=== PATIENT | male | born 2000 | race Caucasian/White ===

== ENCOUNTER 2019-04-07 21:38 | Emergency (ER) | payer SELFPAY ==
[~2019-04-07] VITALS: Ht 180.3 cm; Wt 138.3 kg
[2019-04-07 21:50] VITALS: BP 165/95
--- NOTE | 2019-04-07 21:56 | PHYS DOC ---
Adult General Chief Complaint Chief Complaint: ANKLE PROBLEM HPI HPI 18-year-old male presents with right ankle pain. The patient states he fell down a couple stairs yesterday and the end of the fall rolled his right ankle medially. He has been able to walk. He has some pain with toe off, but it does seem to be improving. He presents because he needs a work note and he doesn't think he should go back to work yet because it still hurts. He really doesn't think it's broken and doesn't want an x-ray of a sepsis necessary. He has no other concerns or complaints. Review of Systems Review of Systems Constitutional: Denies fever or chills [] Eyes: Denies change in visual acuity, redness, or eye pain [] HENT: Denies nasal congestion or sore throat [] Respiratory: Denies cough or shortness of breath [] Cardiovascular: No additional information not addressed in HPI [] GI: Denies abdominal pain, nausea, vomiting, bloody stools or diarrhea [] : Denies dysuria or hematuria [] Musculoskeletal: Right ankle pain[] Integument: Denies rash or skin lesions [] Neurologic: Denies headache, focal weakness or sensory changes [] Endocrine: Denies polyuria or polydipsia [] All other systems were reviewed and found to be within normal limits, except as documented in this note. Allergies Allergies Allergies Coded Allergies Type Severity Reaction Last Updated Verified No Known Drug Allergies 04/07/19 No Physical Exam Physical Exam Constitutional: Well developed, well nourished, no acute distress, non-toxic appearance. [] HENT: Normocephalic, atraumatic, bilateral external ears normal, oropharynx moist, no oral exudates, nose normal. [] Eyes: PERRLA, EOMI, conjunctiva normal, no discharge. [] Neck: Normal range of motion, no tenderness, supple, no stridor. [] Cardiovascular:Heart rate regular rhythm, no murmur [] Lungs & Thorax: Bilateral breath sounds clear to auscultation [] Abdomen: Bowel sounds normal, soft, no tenderness, no masses, no pulsatile nilay s. [] Skin: Warm, dry, no erythema, no rash. [] Back: No tenderness, no CVA tenderness. [] Extremities: Mild tenderness over the right lateral ankle below the malleolus, no cyanosis, no clubbing, ROM intact, no edema. [] Neurologic: Alert and oriented X 3, normal motor function, normal sensory f unction, no focal deficits noted. [] Psychologic: Affect normal, judgement normal, mood normal. [] EKG EKG [] Radiology/Procedures Radiology/Procedures [] Course & Med Decision Making Course & Med Decision Making Pertinent Labs and Imaging studies reviewed. (See chart for details) I believe the patient has mild right ankle sprain. He wears high top lace up boots for work. Given the option of a splint and he does not believe is necessary. He is stable for discharge at this time. [] Dragon Disclaimer Dragon Disclaimer This electronic medical record was generated, in whole or in part, using a voice recognition dictation system. Departure Departure: Impression: Primary Impression: Right ankle sprain Referrals: PCP,NO (PCP) Patient Instructions: Ankle Sprain, Acute, with Phase I Rehab-Sports[facility] Problem Qualifiers Primary Impression: Right ankle sprain Encounter type: initial encounter Involved ligament of ankle: unspecified ligament Qualified Codes: S93.401A - Sprain of unspecified ligament of right ankle, initial encounter VALERIA THOMAS DO April 07, 2019 21:56
== END 2019-04-07 22:00 | disposition home or self-care (01) ==
LOC: ER 21:38
DX: S93.401A Sprain of unspecified ligament of right ankle, initial encounter (principal); W10.8XXA Fall (on) (from) other stairs and steps, initial encounter; Y93.89 Activity, other specified; Y92.89 Other specified places as the place of occurrence of the external cause; Y99.8 Other external cause status
CPT/HCPCS: 99281

== ENCOUNTER 2019-05-17 18:46 | Emergency (ER) | payer OTHER ==
[~2019-05-17] VITALS: Ht 172.7 cm; Wt 110.7 kg
--- NOTE | 2019-05-17 18:50 | ED.ADGEN ---
Past History Past Medical History: No Pertinent History Past Surgical History: No Surgical History Drug Use: None Adult General Chief Complaint Chief Complaint ".. I was cutting up tang.. and I got my Lt index finger.. almost completely cut off the tip..." " I work and [employer]. .my boss sent me down here..." HPI HPI Patient is a 18 year old male who presents with above hx and complaints of 2 cm laceration Lt. finger (Tip avulsion.) Pt. working at [employer] at time of i njury. Patient denies any other injuries. Patient denies immunosuppression. Patient does not remember his last tetanus shot. Patient is right-hand dominant. No travel or specific ill contacts. Review of Systems Review of Systems Constitutional: Denies fever or chills [] Eyes: Denies change in visual acuity, redness, or eye pain [] HENT: Denies nasal congestion or sore throat [] Respiratory: Denies cough or shortness of breath [] Cardiovascular: No additional information not addressed in HPI [] GI: Denies abdominal pain, nausea, vomiting, bloody stools or diarrhea [] : Denies dysuria or hematuria [] Musculoskeletal: Denies back pain or joint pain [] Integument: Denies rash or skin lesions []complaints of near avulsion laceration of right distal index finger Neurologic: Denies headache, focal weakness or sensory changes [] Endocrine: Denies polyuria or polydipsia [] All other systems were reviewed and found to be within normal limits, except as documented in this note. Family History Family History Noncontributory Current Medications Current Medications Current Medications Medications (Trade) Dose Ordered Sig/James Start Time Stop Time Status Last Admin Dose Admin Bacitracin (Bacitracin Topical Pkt) 2 pkt 1X ONCE 05/17/19 19:15 05/17/19 19:17 DC 05/17/19 19:42 2 PKT Diphtheria/ Tetanus/Acell Pertussis (Boostrix) 0.5 ml ONCE ONCE 05/17/19 19:15 05/17/19 19:17 DC 05/17/19 19:42 0.5 ML Lidocaine HCl 20 ml 1X ONCE 05/17/19 19:15 05/17/19 19:17 DC 05/17/19 19:43 20 ML Allergies Allergies Allergies Coded Allergies Type Severity Reaction Last Updated Verified No Known Drug Allergies 04/07/19 No Physical Exam Physical Exam Constitutional: Well developed, well nourished, no acute distress, non-toxic appearance. [] HENT: Normocephalic, atraumatic, bilateral external ears normal, oropharynx moist, no oral exudates, nose normal. [] Eyes: PERRLA, EOMI, conjunctiva normal, no discharge. [] Neck: Normal range of motion, no tenderness, supple, no stridor. [] Cardiovascular:Heart rate regular rhythm, no murmur [] Lungs & Thorax: Bilateral breath sounds clear to auscultation [] Abdomen: Bowel sounds normal, soft, no tenderness, no masses, no pulsatile masses. [] Skin: Warm, dry, no erythema, no rash. [] Back: No tenderness, no CVA tenderness. [] Extremities: No tenderness, no cyanosis, no clubbing, ROM intact, no edema. [] Laceration tip of left index finger as per history of present illness Neurologic: Alert and oriented X 3, normal motor function, normal sensory function, no focal deficits noted. [] Psychologic: Affect normal, judgement normal, mood normal. [] Current Patient Data Vital Signs Vital Signs Date Time Temp Pulse Resp B/P (MAP) Pulse Ox O2 Delivery O2 Flow Rate FiO2 05/17/19 19:05 98.4 82 16 97 Room Air EKG EKG [] Radiology/Procedures Radiology/Procedures [] Course & Med Decision Making Course & Med Decision Making Pertinent Labs and Imaging studies reviewed. (See chart for details) Laceration repair- Finger laceration irrigated extensive with saline in range of motion. Betadine applied to edge is of wound. Finger re-irrigated with normal saline. Digital block as well as localization blocking with lidocaine. Re-irrigated finger. Placed 6x 4-0 Prolene stitches. Dressing applied with antibiotic ointment. Patient keep finger clean and dry. Sutures to be taken out in 10 days. If finger becomes wet or soiled or dirty dressing must be removed immediately and replaced with Band-Aid and antibiotic ointment 4 times a day. Follow-up primary care. Follow-up work comp. Return if any concerns. Tylenol and ibuprofen for pain. [] Final Impression Final Impression 1. 2 cm avulsion laceration Lt. index finger[] Dragon Disclaimer Dragon Disclaimer This electronic medical record was generated, in whole or in part, using a voice recognition dictation system. Discharge Summary Visit Information Final Diagnosis Problems Medical Problems: (1) Laceration Status: Acute Brief Hospital Course Allergies Allergies Coded Allergies Type Severity Reaction Last Updated Verified No Known Drug Allergies 04/07/19 No Vital Signs Vital Signs Date Time Temp Pulse Resp B/P (MAP) Pulse Ox O2 Delivery O2 Flow Rate FiO2 05/17/19 19:05 98.4 82 16 97 Room Air Brief Hospital Course Mr. Carey is a 18 old male who presented with distal near completed avulsion laceration to tip of Lt.index finger. Discharge Information Condition at Discharge: Improved Disposition/Orders: D/C to Home Dischare Medications Current Medications Lidocaine HCl 20 ml 1X ONCE INJ Last administered on 05/17/19at 19:43; Admin Dose 20 ML; Start 05/17/19 at 19:15; Stop 05/17/19 at 19:17; Status DC Bacitracin (Bacitracin Topical Pkt) 2 pkt 1X ONCE TP Last administered on 05/17/19at 19:42; Admin Dose 2 PKT; Start 05/17/19 at 19:15; Stop 05/17/19 at 19:17; Status DC Diphtheria/ Tetanus/Acell Pertussis (Boostrix) 0.5 ml ONCE ONCE VAX IM Last administered on 05/17/19at 19:42; Admin Dose 0.5 ML; Start 05/17/19 at 19:15; Stop 05/17/19 at 19:17; Status DC Dragon Disclaimer This chart was dictated in whole or in part using Voice Recognition software in a busy, high-work load, and often noisy Emergency Department environment. It may contain unintended and wholly unrecognized errors or omissions. BECCA PERRY MD May 17, 2019 18:50
[2019-05-17 19:05] VITALS: BP 154/58
[2019-05-17] MEDS ORDERED: BACITRACIN ZINC TOPICAL OINT PACKET. TP ONE (19:15)
[2019-05-17] MEDS ORDERED: DIPHTH,PERTUSS(ACELL),TET TOX 0.5 ML DISP.SYRIN. VAX IM ONE (19:15)
[2019-05-17] MEDS ORDERED: LIDOCAINE 2% 20 ML VIAL. INJ ONE (19:15)
== END 2019-05-17 19:34 | disposition home or self-care (01) ==
LOC: ER 18:46
DX: S61.311A Laceration without foreign body of left index finger with damage to nail, initial encounter (principal); W26.8XXA Contact with other sharp object(s), not elsewhere classified, initial encounter; Y93.89 Activity, other specified; Y92.89 Other specified places as the place of occurrence of the external cause; Y99.0 Civilian activity done for income or pay
CPT/HCPCS: 12001; 90471; 90715; 99283-25; J2001

== ENCOUNTER 2019-05-28 14:35 | Emergency (ER) | payer OTHER ==
[~2019-05-28] VITALS: Ht 172.7 cm; Wt 105.8 kg
[2019-05-28 14:35] VITALS: BP 151/89
[2019-05-28] MEDS ORDERED: IPRATRPIUM/ALBUTEROL 0.5/2.5MG 3 ML NEBU. NEB ONE (15:00)
--- NOTE | 2019-05-28 15:12 | PHYS DOC ---
Past History Past Medical History: Asthma Past Surgical History: No Surgical History Alcohol Use: None Drug Use: None Adult General Chief Complaint Chief Complaint: FINGER INJURY HPI HPI Patient is a 18-year-old male who presents with complaint that he is not feeling well over the last couple of days and states that last night he had difficulty with sleeping because he was coughing and feeling short of breath. He denies any fever. He states the cough is been present for the last few days and has been productive of sputum. He denies any chest pain. He states that shortness breath is worsened with exertion. He states that nothing is improving his symptoms.[] Review of Systems Review of Systems Constitutional: Denies fever or chills [] Respiratory: Positive productive cough and shortness of breath [] Cardiovascular: No additional information not addressed in HPI [] Integument: Denies rash or skin lesions [] Current Medications Current Medications Current Medications Medications (Trade) Dose Ordered Sig/James Start Time Stop Time Status Last Admin Dose Admin Albuterol/ Ipratropium (Duoneb) 3 ml 1X ONCE 05/28/19 15:00 05/28/19 15:01 UNV Allergies Allergies Allergies Coded Allergies Type Severity Reaction Last Updated Verified No Known Drug Allergies 04/07/19 No Physical Exam Physical Exam Constitutional: Well developed, well nourished, no acute distress, non-toxic appearance. [] Neck: Normal range of motion, no tenderness, supple, no stridor. [] Cardiovascular:Heart rate regular rhythm, no murmur [] Lungs & Thorax: Bilateral breath sounds clear to auscultation [] Extremities: No tenderness, no cyanosis, no clubbing, ROM intact, no edema. [] EKG EKG [] Radiology/Procedures Radiology/Procedures [] Impressions: chest x-ray demonstrates no acute abnormality. Course & Med Decision Making Course & Med Decision Making Pertinent Labs and Imaging studies reviewed. (See chart for details) [] Dragon Disclaimer Dragon Disclaimer This electronic medical record was generated, in whole or in part, using a voice recognition dictation system. Departure Departure: Impression: Primary Impression: Acute bronchitis Disposition: HOME, SELF-CARE Condition: STABLE Referrals: PCP,NO (PCP) Patient Instructions: Acute Bronchitis Scripts Azithromycin (ZITHROMAX) 250 Mg Tablet 1 PKG PO UD for infection, #6 TAB Prov: KATE MCKENZIE Jr. DO 05/28/19 Problem Qualifiers Primary Impression: Acute bronchitis Bronchitis organism: unspecified organism Qualified Codes: J20.9 - Acute bronchitis, unspecified KATE MCKENZIE Jr. DO May 28, 2019 15:12
[2019-05-28 15:25] LABS: BILIRUBIN,URINE NEG (NEG); CLARITY,URINE CLEAR; COLOR,URINE ORANGE; GLUCOSE,URINE NEG (NEG)
[2019-05-28 15:26] LABS: BACTERIA,URINE FEW /HPF (0-FEW); HYALINE CASTS, URINE OCC /HPF; NITRITE,URINE NEG (NEG); RBC,URINE 0 /HPF (0-2); SQUAMOUS EPITHELIAL CELL,UR OCC /LPF; UROBILINOGEN,URINE 8 mg/dL (0.2 mg/dL); WBC,URINE 0 /HPF (0-4)
--- NOTE | 2019-05-28 15:29 | RAD ---
Chest, PA and Lateral: Technique: PA and lateral views of the chest were obtained. History: Cough. Comparison: None. Findings: The heart and pulmonary vasculature appear within normal limits. The lungs are clear. The pleural margins are clear. Impression: No acute chest process is seen. Electronically signed by: Dinesh Jennings MD (05/28/2019 3:26 PM) [place]
[2019-05-28] MEDS ORDERED: AZIT250T PO (15:52)
[2019-05-28] MEDS ORDERED: AZITHROMYCIN 250 MG TABLET. PO ONE (16:00)
== END 2019-05-28 16:08 | disposition home or self-care (01) ==
LOC: ER 14:35
DX: J20.9 Acute bronchitis, unspecified (principal); J45.909 Unspecified asthma, uncomplicated
CPT/HCPCS: 71046; 81001; 94640; 99285; J0456; J7620

== ENCOUNTER 2020-04-15 18:40 | Emergency (ER) | payer SELFPAY ==
[~2020-04-15] VITALS: Ht 180.3 cm; Wt 96.1 kg
[~2020-04-15 18:40] MED LIST: AZIT250T PO
[2020-04-15 20:11] VITALS: BP 138/81
--- NOTE | 2020-04-15 20:15 | PHYS DOC ---
Past History Past Medical History: Seizure Past Surgical History: No Surgical History Alcohol Use: None Drug Use: None General Adult EDM: Chief Complaint: BACK INJURY HPI: HPI: "..I got this terrible low back..or upper butt pain.. it is so bad now .. I can't sit..." Patient is a 19 year old male who presents with above hx and complaints of low back pain or tail bone pain for 2 weeks. Upon exam patient patient has a abscess at the upper gluteal crease. Patient denies any history of metal suppression. Patient denies any history of colitis with him or family members. Patient states his tetanus is up-to-date. No recent travel or sick ill contacts. Discussed options of treatment with patient. Review of Systems: Review of Systems: Constitutional: Denies fever or chills Eyes: Denies change in visual acuity HENT: Denies nasal congestion or sore throat Respiratory: Denies cough or shortness of breath Cardiovascular: Denies chest pain or edema GI: Denies abdominal pain, nausea, vomiting, bloody stools or diarrhea : Denies dysuria Musculoskeletal: Complains of lower back/gluteal crease pain Integument: Denies rash Neurologic: Denies headache, focal weakness or sensory changes Endocrine: Denies polyuria or polydipsia Lymphatic: Denies swollen glands Psychiatric: Denies depression or anxiety Heart Score: Risk Factors: Risk Factors: DM, Current or recent (<one month) smoker, HTN, HLP, family history of CAD, obesity. Risk Scores: Score 0 - 3: 2.5% MACE over next 6 weeks - Discharge Home Score 4 - 6: 20.3% MACE over next 6 weeks - Admit for Clinical Observation Score 7 - 10: 72.7% MACE over next 6 weeks - Early Invasive Strategies Family History: Family History: Noncontributory Current Medications: Current Meds: See nursing for home meds Allergies: Allergies: Allergies Coded Allergies Type Severity Reaction Last Updated Verified No Known Drug Allergies 04/07/19 No Physical Exam: PE: Constitutional: Well developed, well nourished,in acute distress, non-toxic appearance. [] HENT: Normocephalic, atraumatic, bilateral external ears normal, oropharynx moist, no oral exudates, nose normal. [] Eyes: PERRLA, EOMI, conjunctiva normal, no discharge. [] Neck: Normal range of motion, no tenderness, supple, no stridor. [] Cardiovascular:Heart rate regular rhythm, no murmur [] Lungs & Thorax: Bilateral breath sounds clear to auscultation [] Abdomen: Bowel sounds normal, soft, no tenderness, no masses, no pulsatile masses. [] Skin: Warm, dry, no erythema, no rash. [] Back: No tenderness, no CVA tenderness. [] Upper area gluteal crease patient has a 2 x 2 centimeter abscess and surrounding cellulitis. Extremities: No tenderness, no cyanosis, no clubbing, ROM intact, no edema. [] Neurologic: Alert and oriented X 3, normal motor function, normal sensory function, no focal deficits noted. [] Psychologic: Affect anxious, judgement normal, mood normal. [] Current Patient Data: Vital Signs: Vital Signs Date Time Temp Pulse Resp B/P (MAP) Pulse Ox O2 Delivery O2 Flow Rate FiO2 04/15/20 20:11 88 18 138/81 (100) 99 Room Air 04/15/20 18:44 98.8 EKG: EKG: [] Radiology/Procedures: Radiology/Procedures: [] Course & Med Decision Making: Course & Med Decision Making Pertinent Labs and Imaging studies reviewed. (See chart for details) Procedure note-incision and drainage-area of gluteal crease is clean Betadine. 1 stick with 11 blade with drainage of a approximately 3 cc of pus. Patient do sitz bath or rinses with warm water 4 times a day and after stooling. Patient take Bactrim DS twice a day. Patient follow-up primary care. Patient return if any concerns. Patient warned abscess in this area can track to the anus area. Must follow-up may need surgical revision if abscess becomes recurrent patient take Tylenol and ibuprofen for pain per my pain may take Vicoprofen. Impression: 1. Abscess - Gluteal crease [] Dragon Disclaimer: Yareli Disclaimer: This electronic medical record was generated, in whole or in part, using a voice recognition dictation system. Departure Departure: Disposition: 01 HOME/RESIDENCE PRIOR TO ADM Condition: STABLE Referrals: PCP,NO (PCP) Scripts Sulfamethoxazole/Trimethoprim (BACTRIM DS TABLET) 1 Each Tablet 1 TAB PO BID for abscess for 10 Days, #20 TAB 0 Refills Prov: BECCA PERRY MD 04/15/20 Hydrocodone/Ibuprofen (HYDROCODONE-IBUPROFEN 7.5-200 ) 1 Each Tablet 1 TAB PO PRN Q6HRS PRN for PAIN, #30 TAB 0 Refills Prov: BECCA PERRY MD 04/15/20 Dragon Disclaimer This chart was dictated in whole or in part using Voice Recognition software in a busy, high-work load, and often noisy Emergency Department environment. It may contain unintended and wholly unrecognized errors or omissions. BECCA PERRY MD Apr 15, 2020 20:15
[2020-04-15] MEDS ORDERED: SULF1TAB24 PO (20:21)
[2020-04-15] MEDS ORDERED: HYDR-1179 PO (20:21)
[2020-04-15] MEDS ORDERED: SMZ/TMP 800/160MG TABLET. PO ONE (20:30)
[2020-04-15] MEDS ORDERED: cefTRIAXone IM 1 GM VIAL IM ONE (20:30)
[2020-04-15] MEDS ORDERED: KETOROLAC 60 MG/2 ML VIAL. IM ONE (20:30)
[2020-04-15] MEDS ORDERED: DIPH,PERTUSS(ACELL),TET VAC/PF 0.5 ML SYRINGE. VAX IM ONE (20:45)
== END 2020-04-15 21:06 | disposition home or self-care (01) ==
LOC: ER 18:40
DX: L02.31 Cutaneous abscess of buttock (principal); M54.5 Low back pain
CPT/HCPCS: 10060; 90471; 90715; 96372; 99284; J0696; J1885

== ENCOUNTER 2021-03-28 22:57 | Emergency (ER) | payer OTHER ==
[~2021-03-28] VITALS: Ht 177.8 cm; Wt 101.1 kg
[~2021-03-28 22:57] MED LIST changes: +HYDR-1179 PO; +SULF1TAB24 PO
[2021-03-28 23:11] VITALS: BP 153/96
[2021-03-28] MEDS ORDERED: ONDA4TAB7 PO (23:23)
--- NOTE | 2021-03-28 23:23 | PHYS DOC ---
Past History Past Medical History: A-Fib, Seizure Past Surgical History: No Surgical History Alcohol Use: Rarely Drug Use: None Adult General Chief Complaint Chief Complaint: NAUSEA/VOMITING/DIARRHEA HPI HPI Patient is an otherwise healthy 20-year-old male who presents with couple episodes of nonbloody nonbilious emesis after eating out last night. States that a couple hours after eating out, he had some nausea and vomiting. States has had a couple episodes today that were nonbloody and nonbilious. States that he had some soft stool but it was not watery as well. Denies any fevers, sore throat, chest pain, shortness of breath, abdominal pain, dysuria, hematuria or blood in the stool. Patient states that he is starting to feel little bit better but would like a work note for tomorrow as he wants to stay home and rest. States he is able to drink plenty of fluids but does have a decreased appetite and ate some crackers earlier. Review of Systems Review of Systems Review of systems otherwise unremarkable except noted in HPI Allergies Allergies Allergies Coded Allergies Type Severity Reaction Last Updated Verified No Known Drug Allergies 03/28/21 No Physical Exam Physical Exam Constitutional: Well developed, well nourished, no acute distress, non-toxic appearance. [] HENT: Normocephalic, atraumatic, Eyes: conjunctiva normal, no discharge. [] Neck: Normal range of motion, no tenderness, supple, no stridor. [] Cardiovascular:Heart rate regular rhythm, no murmur [] Lungs & Thorax: No respiratory distress Abdomen: Bowel sounds normal, soft, no tenderness, no masses, no pulsatile masses. [] Skin: Warm, dry, no erythema, no rash. [] Back: no CVA tenderness. [] Neurologic: Alert and oriented X 3, normal motor function, normal sensory function, no focal deficits noted. [] Psychologic: Affect normal, judgement normal, mood normal. [] Current Patient Data Vital Signs Vital Signs Date Time Temp Pulse Resp B/P (MAP) Pulse Ox O2 Delivery O2 Flow Rate FiO2 03/28/21 23:11 98.3 86 18 153/96 (115) 98 Room Air EKG EKG [] Radiology/Procedures Radiology/Procedures [] Heart Score C/O Chest Pain: No Risk Factors: Risk Factors: DM, Current or recent (<one month) smoker, HTN, HLP, family history of CAD, obesity. Risk Scores: Risk Factors: DM, Current or recent (<one month) smoker, HTN, HLP, family history of CAD, obesity. Course & Med Decision Making Course & Med Decision Making Patient is a 20-year-old male who presents with nausea and vomiting Vital signs not concerning. Physical exam noted above. Patient given Zofran. Given work note. On reassessment patient stated he was feeling actually better here in the emergency department and just wanted to go home and sleep. Advised to follow-up with primary care as needed. Gave nutrition and fluid recommendations at home. Gave Zofran prescription. Gave return precautions to the ED. Patient grateful, verbalized understanding and agreed with plan of jayson scott. [] Yareli Disclaimer Dragon Disclaimer This electronic medical record was generated, in whole or in part, using a voice recognition dictation system. Departure Departure: Impression: Primary Impression: Nausea & vomiting Disposition: HOME / SELF CARE / HOMELESS Condition: GOOD Referrals: PCP,NICHOLE (PCP) FARTUN MASTERS MD Patient Instructions: Nausea and Vomiting, [id number] Additional Instructions: Please read all the attached information carefully. Please take your nausea medicine as prescribed. You are given a work note at your request for rest tomorrow from work. Please be sure to eat and drink at home as discussed. Please follow-up with your primary care as needed. Please come back to the ED with new or concerning symptoms as discussed. Scripts Ondansetron Hcl (ZOFRAN) 4 Mg Tablet 1 TAB PO TID PRN for NAUSEA, #10 TAB Prov: IONA MANSFIELD MD 03/28/21 IONA MANSFIELD MD March 28, 2021 23:23
== END 2021-03-28 23:27 | disposition home or self-care (01) ==
LOC: ER 22:57
DX: R11.2 Nausea with vomiting, unspecified (principal)
CPT/HCPCS: 99283

== ENCOUNTER 2021-08-18 11:30 | Emergency (ER) | payer OTHER ==
[~2021-08-18] VITALS: Ht 180.3 cm; Wt 96.5 kg
[~2021-08-18 11:30] MED LIST changes: +ONDA4TAB7 PO
[2021-08-18 11:35] VITALS: BP 132/72
--- NOTE | 2021-08-18 12:04 | RAD ---
EXAM: Right hand, 3 views. HISTORY: Punched brick wall. COMPARISON: None. FINDINGS: 3 views of the right hand are obtained. There is a comminuted mild displaced and angulated distal fifth metacarpal fracture. There is an incidental bone island within the distal radius. There is no foreign body. IMPRESSION: Comminuted distal fifth metacarpal fracture. Electronically signed by: Meagan Willsi MD (08/18/2021 12:01 PM) [id number]
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
== END 2021-08-18 13:05 | disposition home or self-care (01) ==
LOC: ER 11:30
DX: S62.336A Displaced fracture of neck of fifth metacarpal bone, right hand, initial encounter for closed fracture (principal); M79.7 Fibromyalgia; Z88.8 Allergy status to other drugs, medicaments and biological substances; W22.01XA Walked into wall, initial encounter; Y93.89 Activity, other specified; Y92.89 Other specified places as the place of occurrence of the external cause; Y99.0 Civilian activity done for income or pay
CPT/HCPCS: 29125; 73130; 99283

== ENCOUNTER 2021-08-25 13:09 | Emergency (ER) | payer OTHER ==
[~2021-08-25] VITALS: Ht 180.3 cm; Wt 96.5 kg
[2021-08-25 13:49] VITALS: BP 135/64
--- NOTE | 2021-08-25 13:51 | PHYS DOC ---
Past History Past Medical History: A-Fib, Seizure Past Surgical History: No Surgical History Alcohol Use: None Drug Use: None General Adult EDM: Chief Complaint: HAND PROBLEM HPI: HPI: Patient is a 21-year-old male presents requesting reapplication of a splint to his right hand. On 08/18 he was seen in this emergency department found to have a boxers fracture. He was placed in an ulnar gutter splint and given instructions for hand surgery follow-up. He has schedule II appointments with the hand surgery office, but has had to cancel both of them so has not followed up yet. States that his splint "broke" so he took it off. He is requesting reapplication of splint. Pain has not changed. No change in motor or sensory function. XR from 08/18 Report: FINDINGS: 3 views of the right hand are obtained. There is a comminuted mild displaced and angulated distal fifth metacarpal fracture. There is an incidental bone island within the distal radius. There is no foreign body. IMPRESSION: Comminuted distal fifth metacarpal fracture. Review of Systems: Review of Systems: Constitutional: Denies fever or chills Eyes: Denies change in visual acuity HENT: Denies nasal congestion or sore throat Respiratory: Denies cough or shortness of breath Cardiovascular: Denies chest pain or edema GI: Denies abdominal pain, nausea, vomiting, bloody stools or diarrhea : Denies dysuria Musculoskeletal: Right hand pain Integument: Denies rash Neurologic: Denies headache, focal weakness or sensory changes Endocrine: Denies polyuria or polydipsia Lymphatic: Denies swollen glands Psychiatric: Denies depression or anxiety Allergies: Allergies: Allergies Coded Allergies Type Severity Reaction Last Updated Verified feathers Allergy Unknown 08/18/21 Yes Physical Exam: PE: Constitutional: Well developed, well nourished, no acute distress, non-toxic appearance. [] HENT: Normocephalic, atraumatic, Eyeconjunctiva normal, no discharge. [] Cardiovascular: Heart rate normal Lungs & Thorax: Normal work of breathing Skin: See extremity exam, otherwise warm, dry Extremities: Right hand with bruising and swelling over the fifth metacarpal extending into the pinky. Good range of motion at the MCP. No significant angulation seen with flexion of the fingers. Distal cap refill and sensation intact. Neurologic: Alert and oriented X 3, normal motor function, normal sensory function, no focal deficits noted. [] Psychologic: Affect normal, judgement normal, mood normal. [] EKG: EKG: [] Radiology/Procedures: Radiology/Procedures: [] Heart Score: C/O Chest Pain: N/A Risk Factors: Risk Factors: DM, Current or recent (<one month) smoker, HTN, HLP, family his tory of CAD, obesity. Risk Scores: Score 0 - 3: 2.5% MACE over next 6 weeks - Discharge Home Score 4 - 6: 20.3% MACE over next 6 weeks - Admit for Clinical Observation Score 7 - 10: 72.7% MACE over next 6 weeks - Early Invasive Strategies Course & Med Decision Making: Course & Med Decision Making Pertinent Labs and Imaging studies reviewed. (See chart for details) Patient a 21-year-old male who presents requesting reapplication of an ulnar gutter splint. Was seen on 08/18 with a boxer's fracture. Has not followed up with hand surgery, but does have the office number and is working on a follow-up appointment. Neurovascular intact on examination. Do not feel that he requires repeat imaging, as there has been no additional injury. We will reapply ulnar gutter splint. Dragon Disclaimer: Yareli Disclaimer: This electronic medical record was generated, in whole or in part, using a voice recognition dictation system. Departure Departure: Impression: Primary Impression: Boxers fracture Referrals: PCP,NO (PCP) Patient Instructions: Boxer's Fracture Additional Instructions: Please schedule the appointment with the hand surgery office. [facility] Hand Surgery: [phone] ROLY ANDINO MD Aug 25, 2021 13:51
== END 2021-08-25 14:39 | disposition home or self-care (01) ==
LOC: ER 13:09
DX: S62.396D Other fracture of fifth metacarpal bone, right hand, subsequent encounter for fracture with routine healing (principal); I48.91 Unspecified atrial fibrillation; Z88.8 Allergy status to other drugs, medicaments and biological substances; X58.XXXD Exposure to other specified factors, subsequent encounter
CPT/HCPCS: 99281